=== PATIENT | female | born 1980 | race Caucasian/White ===

== ENCOUNTER 2023-08-29 12:24 | Outpatient (AMB) | payer OTHER, SELFPAY ==
--- NOTE | 2023-08-29 12:28 | A.OFFVIS_ITS ---
Vital Signs 08/29/23 12:30 Height 5 ft 1 in Weight 187 lb 6.287 oz BMI 35.4 BP 124/70 Blood Pressure Location Rt brachial Position Sitting Pulse 103 H Pulse Source Pulse Oximeter Pulse Oximetry (%) 97 Oxygen Delivery Method Room Air Intake Visit Reasons: + ANDREW Intake Note: New patient, externally referred by Dr. Blank at [facility], presents to office today for +ANDREW. Reports family history of Celiac's C/o headaches, sleep disturbance, knee pain Delivery Lead Required: No Accompanied by: Self / Same As Patient Allergies No Known Allergies Allergy (Verified 08/29/23 12:33) HPI Comments Details: Ms. Kenyon 42 yoF here for evaluation of +ANDREW in the context of lower pack pain and knee pain. The Knee pain starte 2010 and back pain started since before Pandemic, about 2018. Denies known injury -but was supposed it relates to lifting her daughter. 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 Feet and hands starting hurting sporadically. --Cortsone injection to left knee and a Toradol injection to the tailbone pain 3 months- improved but started back again --MRI C-spine ordered by Dr. Jiménez on 2017 with no findings concerning for CTD or inflammatory process. --youngest daughter (11 yo) has PsO on scalp- dx by PCP; does not think any other CTD in family --2014/2016 cortisone injection x 3 for left thumb tenosynovitis. She was offered tendon wrap surgery but declined because it would interfere with her taking care of her daughter. No recurrence since --denies Uveiitis, Achilles tendinitis. She feels pain at the bottom of her feet at only rest.It does not hurt when she walks, not tender on palpation --no rash, fevers, unexplained WL. No diarrhea or abdominal pain. --Family hx of Celiac PFSH Medical History (Updated 08/29/23 @ 12:55 [facility] Abnormal neurological findings Screening examination for unspecified infectious disease Low back pain at multiple sites Cyst of ovary Craniosynostosis unspecified Subluxation of symphysis (pubis) in , second trimester Unspecified asthma, uncomplicated Abnormal brain MRI ANDREW positive Left lower quadrant abdominal swelling, mass and lump Abnormal uterine bleeding COVID-19 Family History (Updated 08/29/23 @ 12:40 by Catrina Solis [facility]) Mother Medical history unknown Father Medical history unknown Other Cerebral palsy Family history of celiac disease Social History Alcohol intake: current Alcohol intake frequency: does not drink Patient Tobacco Use Status: Never used Tobacco Current occupational status: employed 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 External ear normal. NOSE/SINUS:? Airflow through both nares, no nasal discharge, no bleeding THROAT:? Oral mucosa moist, no ulcerations NECK:? No thyromegaly or masses, no adenopathy, trachea midline. HEART:? Regular rhythm, S1-S2 heard, no murmurs, rubs or gallops. LUNG:? Clear to percussion and auscultation EXTREMITIES:? No edema, no calf tenderness, normal peripheral pulses. NEURO:? Oriented and alert x3.? No focal weakness.? Reflexes symmetric.? Gait normal. SKIN:? There are no skin lesions evident. No objective signs of Raynaud's phenomenon. JOINT EXAM: Cervical Spine:.? Full range of motion without pain; no tenderness. Thoracic Spine:.? No scoliosis.? No tenderness on palpation. Lumbar Spine:.? Alignment normal.? Full range of motion without pain, no tenderness. Chest Wall:.? No tenderness, swelling, increased warmth or erythema. Hands:.? Normal pain-free range of motion without tenderness, swelling, increased warmth or erythema. Able to make a full fist and has a good syruper strength. Wrists:.? Normal pain-free range of motion without tenderness, swelling, increased warmth or erythema. Elbows:. Normal pain-free range of motion without tenderness, swelling, increased warmth or erythema. Shoulders:.?? Full range of motion without pain. No tenderness, weakness, swelling, increased warmth or erythema. Hips:.? Full range of motion without pain. Hip bursa:.? No tenderness. Knees:.?? Normal pain-free range of motion without tenderness, swelling, increased warmth or erythema.? There is no effusion or crepitation Ankles:.? Normal pain-free range of motion without tenderness, swelling, increased warmth or erythema. Feet:.? Normal pain-free range of motion without tenderness, swelling, increased warmth or erythema. Tender points:? No tenderness to digital palpation at the occiput, trapezius, second rib, lateral epicondyle, knees, greater trochanter and gluteal area bilaterally. Assessment & Plan Assessment & Plan (1) ANDREW positive: Code(s): R76.8 - Other specified abnormal immunological findings in serum Category: Medical (2) Low back pain at multiple sites: Code(s): M54.50 - Low back pain, unspecified Category: Medical Plan #+ANDREW and Low back pain: After initial review of history, PE and available serology, I do not think the patient has a CTD or inflammatory condition that underlies her low back pain and +ANDREW. I suspect her back pain may relate to possible injury sustained from lifting her 19 yo who requires complete care with ADLS. She is seeing Physiatry and has had MRIs done which did not reveal inflammation. Xrays for the lumbar was WNL per patient. I will obtain records. She uses Solanpas and Excedrin back and Body which helps. She will continue to follow with Knowledge [facility]. HLA B27 Negative, ANDREW 1:360\ The patient has had Hyperthyroidism and so we will check those antibodies which could cause a positive ANDREW. I will again obtain an updated Rheum panel. I spent 40 minutes reviewing history, evaluating patient and documenting Follow-up as needed. Orders: Orders Anti DNA DS Antibody Today M54.50 - Low back pain, unspecified, R76.8 - Other specified abnormal immunological findings in serum Anti-Centromere B Antibodies Today M54.50 - Low back pain, unspecified, R76.8 - Other specified abnormal immunological findings in serum Complement C3 Today M54.50 - Low back pain, unspecified, R76.8 - Other specified abnormal immunological findings in serum C Reactive Protein Today M54.50 - Low back pain, unspecified, R76.8 - Other specified abnormal immunological findings in serum Immunofixation Pnl, Serum Today M54.50 - Low back pain, unspecified, R76.8 - Other specified abnormal immunological findings in serum T Spot TB Today M54.50 - Low back pain, unspecified, R76.8 - Other specified abnormal immunological findings in serum, Z11.9 - Encounter for screening for infectious and parasitic diseases, unspecified Scleroderma 70 Antibody Today M54.50 - Low back pain, unspecified, R76.8 - Other specified abnormal immunological findings in serum Cyclic Citrullinated Peptide Today M54.50 - Low back pain, unspecified, R76.8 - Other specified abnormal immunological findings in serum Mitochondrial Antibody Today R76.8 - Other specified abnormal immunological findings in serum Thyroid Peroxidase Antibodies Today R76.8 - Other specified abnormal immunological findings in serum Thyroglobulin Antibodies Today R76.8 - Other specified abnormal immunological findings in serum ANDREW Reflex Titer and Pattern Today M54.50 - Low back pain, unspecified, R76.8 - Other specified abnormal immunological findings in serum Anti Extractable Nuclear Ag Today M54.50 - Low back pain, unspecified, R76.8 - Other specified abnormal immunological findings in serum Complement C4 Today M54.50 - Low back pain, unspecified, R76.8 - Other specified abnormal immunological findings in serum Complete Blood Count Auto Diff Today M54.50 - Low back pain, unspecified, R76.8 - Other specified abnormal immunological findings in serum Comprehensive Met. Panel Today M54.50 - Low back pain, unspecified, R76.8 - Other specified abnormal immunological findings in serum Creatine Kinase Total Today M54.50 - Low back pain, unspecified, R76.8 - Other specified abnormal immunological findings in serum Aldolase Today M54.50 - Low back pain, unspecified, R76.8 - Other specified abnormal immunological findings in serum Immunoglobulins,IgG IgA IgM Today M54.50 - Low back pain, unspecified, R76.8 - Other specified abnormal immunological findings in serum Hepatitis A,B,C Profile Today M54.50 - Low back pain, unspecified, R76.8 - Other specified abnormal immunological findings in serum, Z11.9 - Encounter for screening for infectious and parasitic diseases, unspecified Uric Acid Today M54.50 - Low back pain, unspecified, R76.8 - Other specified abnormal immunological findings in serum UA w Microscopic Today M54.50 - Low back pain, unspecified, R76.8 - Other specified abnormal immunological findings in serum Sjogren's Antibodies Today M54.50 - Low back pain, unspecified, R76.8 - Other specified abnormal immunological findings in serum Protein Electrophoresis, Serum Today M54.50 - Low back pain, unspecified, R76.8 - Other specified abnormal immunological findings in serum Rheumatoid Factor Today M54.50 - Low back pain, unspecified, R76.8 - Other specified abnormal immunological findings in serum Erythrocyte Sedimentation Rate Today M54.50 - Low back pain, unspecified, R76.8 - Other specified abnormal immunological findings in serum Vitamin B12 Today R29.90 - Unspecified symptoms and signs involving the nervous system Smooth Muscle Antibody Today R76.8 - Other specified abnormal immunological findings in serum Medications: New ibuprofen 600 mg PO BID 60 tabs 0RF M54.50 - Low back pain, unspecified Coding Level of Care Code New Pt Level 4 (54717) Diagnoses ANDREW positive R76.8 Low back pain at multiple sites M54.50
[2023-08-29 12:30] VITALS: BP 124/70; PULSE 103; O2SAT 97; BMI 35.4
== END 2023-08-29 13:35 | disposition home or self-care (01) ==
PROVIDERS: PCP Family Medicine; Referring Provider Family Medicine; Visit Provider Nurse Practitioner Family
DX: R76.8 Other specified abnormal immunological findings in serum (principal); M54.50 Low back pain, unspecified
CPT/HCPCS: 99204

== ENCOUNTER → 2023-08-29 12:24 | Outpatient (BNVA) | payer OTHER, SELFPAY | PROVIDERS: PCP Family Medicine; Referring Provider Family Medicine; Visit Provider Nurse Practitioner Family ==